=== PATIENT | female | born 1955 | race Caucasian/White ===

== ENCOUNTER 2016-09-18 12:09 | Emergency (ER) | payer BC ==
[~2016-09-18] VITALS: Ht 172.7 cm; Wt 68.2 kg
[2016-09-18 12:11] VITALS: BP 114/61; PULSE 60; RESP 20; TEMP 97.8; O2SAT 89
[2016-09-18] MEDS ORDERED: methylPREDNISolone SOD SUCC 125 MG/2 ML VIAL IVP ONE (13:00)
--- NOTE | 2016-09-18 13:03 | PD ---
HPI Chief Complaint: Cold / Flu Symptoms Time Seen by Provider: 12:58 Travel History International Travel<30 days: No Contact w/Intl Traveler<30days: No Traveled to known affect area: No History of Present Illness HPI Patient is a 61-year-old female presenting to the emergency department for evaluation of cough, chest congestion, nasal congestion. Patient states her symptoms have been ongoing for 2 weeks however for the last 2-3 days it has been exacerbated. Patient states her primary doctor prescribed Z-Juan Jose initially , she went back to him and was given a second Z-Juan Jose. Patient has also been taking Zyrtec and Mucinex. She denies any fever, chills, nausea, vomiting, chest pain, abdominal pain. Patient is a former smoker, she quit on July 30, She has a 20 year history of smoking. PFSH Past Medical History Anxiety: Yes Depression: Yes Hypertension: Yes Social History Alcohol Use: Yes (occasionally) Tobacco Use: No (quit July 2016, former smoker 20 year history.) Substance Use: No Allergies-Medications (Allergen,Severity, Reaction): Coded Allergies: Sulfa (Verified Allergy, Unknown, 09/18/16) Reported Meds & Prescriptions Reported Meds & Active Scripts Active Reported Zithromax Z-Juan Jose (Azithromycin) 250 Mg Dspk 250 Mg PO DIRECTED 500 MG (2 tabs) day 1, then 1 tab days 2-5. Alprazolam 0.25 Mg Tab 0.25 Mg PO Q6H PRN Hydrochlorothiazide 25 Mg Tab 25 Mg PO DAILY Atenolol 50 Mg Tab 50 Mg PO DAILY Lexapro (Escitalopram Oxalate) 20 Mg Tab 20 Mg PO DAILY Review of Systems Except as stated in HPI: all other systems reviewed are Neg General / Constitutional: No: Fever, Chills HENT: Positive: Rhinitis, Congestion Cardiovascular: No: Chest Pain or Discomfort Respiratory: Positive: Cough, Wheezing Gastrointestinal: No: Nausea, Vomiting, Diarrhea, Abdominal Pain Musculoskeletal: No: Myalgias Physical Exam Narrative GENERAL: Well-nourished, well-developed patient. SKIN: Warm and dry. HEAD: Normocephalic. EYES: No scleral icterus. No injection or drainage. NECK: Supple, trachea midline. No JVD or lymphadenopathy. CARDIOVASCULAR: Regular rate and rhythm without murmurs, gallops, or rubs. RESPIRATORY: Breath sounds equal bilaterally. Expiratory wheezing noted throughout lungs. No increased work of breathing, no nasal flaring, no retractions. GASTROINTESTINAL: Abdomen soft, non-tender, nondistended. MUSCULOSKELETAL: No cyanosis, or edema. BACK: Nontender without obvious deformity. No CVA tenderness. Data Data Last Documented VS Vital Signs Date Time Temp Pulse Resp B/P Pulse Ox O2 Delivery O2 Flow Rate FiO2 09/18/16 13:23 91 09/18/16 12:11 97.8 60 20 114/61 Room Air Orders Chest, Pa & Lat (09/18/16 12:57) Methylprednisolone So Succ Inj (Solumedr (09/18/16 13:00) Albuterol-Ipratropium Neb (Duoneb Neb) (09/18/16 13:00) Methylprednisolone So Succ Inj (Solumedr (09/18/16 13:45) MDM Medical Decision Making Medical Screen Exam Complete: Yes Emergency Medical Condition: Yes Interpretation(s) Vital Signs Date Time Temp Pulse Resp B/P Pulse Ox O2 Delivery O2 Flow Rate FiO2 09/18/16 12:11 97.8 60 20 114/61 89 Room Air Differential Diagnosis Pneumonia versus bronchitis versus COPD exacerbation versus viral syndrome versus other Narrative Course Patient's 51-year-old female presenting to emergency department for evaluation of chest congestion, cough, nasal congestion. Patient has completed one Z-Juan Jose and is taking another. Patient has audible wheezing noted on exam, her oxygen saturation initially was 89% on room air. Patient appears well, she is resting comfortably in room. Chest x-ray, nebulizers, Solu-Medrol ordered. She likely has a component of COPD although not formally diagnosed. Chest x-ray shows COPD , patient's oxygen saturation was initially 89% after 3 DuoNeb's her oxygen saturation was only 91%. Patient will likely desat with ambulation. Patient was moved to a medical bed in order to optimize her respiratory status. Care of patient will be transferred to provider when bed available. Milagros Limon Sep 18, 2016 13:02
[2016-09-18 13:23] VITALS: O2SAT 91
[2016-09-18] MEDS: RESP: ALBUTEROL 2.5 MG/IPRATROPIUM 0.5 MG NEB (SCH) INH ×2 (13:24→15:08)
[2016-09-18] MEDS ORDERED: HYDR25TA5 PO (13:38)
[2016-09-18] MEDS ORDERED: ZITHTAB PO (13:38)
[2016-09-18] MEDS ORDERED: LEXA20TA PO (13:38)
[2016-09-18] MEDS ORDERED: ALPR0.25 PO (13:38)
[2016-09-18] MEDS ORDERED: ATEN50TA PO (13:38)
--- NOTE | 2016-09-18 13:41 | RADRPT ---
EXAM DATE/TIME: 09/18/2016 13:25 [facility] COMPARISON: No previous studies available for comparison. INDICATIONS : Congestion with shortness of breath and wheezing x2 weeks. MEDICAL HISTORY : None. SURGICAL HISTORY : None. ENCOUNTER: Initial ACUITY: 2 weeks PAIN SCORE: 0/10 LOCATION: Bilateral chest FINDINGS: PA and lateral views of the chest demonstrate the lungs to be symmetrically aerated without evidence of mass, infiltrate or effusion. The lungs are hyperinflated bilaterally. The cardiomediastinal conto urs are unremarkable. Osseous structures are intact. CONCLUSION: Hyperinflation suggesting COPD. No acute infiltrate or effusion. Raj Goddard Jr., MD on September 18, 2016 at 13:39 Board Certified Radiologist. This report was verified electronically.
[2016-09-18] MEDS ORDERED: methylPREDNISolone SOD SUCC 125 MG/2 ML VIAL IM ONE (13:45)
[2016-09-18 14:43] VITALS: BP 127/63; PULSE 72; RESP 24; O2SAT 94
[2016-09-18] MEDS ORDERED: ZYRT10CA PO (14:50)
[2016-09-18] MEDS ORDERED: MUCI600T PO (14:50)
[2016-09-18] MEDS ORDERED: VITA250T3 PO (14:51)
[2016-09-18 15:00] VITALS: BP 135/69; PULSE 68; RESP 17; O2SAT 92
--- NOTE | 2016-09-18 15:00 | PD ---
Physical Exam Time Seen by Provider: 15:00 Narrative Patient was initially seen and evaluated by VAL Carter. See her note for initial assessment. Data Data Last Documented VS Vital Signs Date Time Temp Pulse Resp B/P Pulse Ox O2 Delivery O2 Flow Rate FiO2 09/18/16 14:43 72 24 127/63 94 Room Air 09/18/16 12:11 97.8 Orders Chest, Pa & Lat (09/18/16 12:57) Methylprednisolone So Succ Inj (Solumedr (09/18/16 13:00) Albuterol-Ipratropium Neb (Duoneb Neb) (09/18/16 13:00) Methylprednisolone So Succ Inj (Solumedr (09/18/16 13:45) Albuterol-Ipratropium Neb (Duoneb Neb) (09/18/16 15:00) MDM Medical Record Reviewed: Yes Supervised Visit with SULEIMAN: Yes Differential Diagnosis COPD, pneumonia, bronchitis Narrative Course Patient initially assessed and evaluated by VAL Kim. See her note for initial assessment. Chest x-ray shows hyperinflation of the lung suggesting COPD. Patient received Solu-Medrol and DuoNeb 3. Patient is in no acute distress and her oxygen saturation is 95-97% on cardiopulmonary monitor. She is without retractions or tachypnea. Lungs with diffuse wheezing throughout on auscultation. I discussed the patient with Dr. Becerra, my attending physician , and he agreed with my treatment plan and recommended DuoNeb 2. Breathing treatments ordered and patient to be discharged home. 1549: On reexamination patient reports improvement in symptoms. She still has diffuse wheezing throughout. Oxygen saturation is 97% on room air. No tachypnea or retractions. No acute distress. Discussed plan of care and outpatient treatment and follow-up with patient and she verbalized understanding. Patient feels comfortable going home. Deltasone and albuterol inhaler prescribed for home. Instructed patient to follow up with interior design program chair. Patient is medically cleared and stable for discharge. Discussed reasons to return to the emergency department. Instructed patient to follow up with primary care provider. Patient agrees with treatment plan. The patients vital signs are stable and the patient is stable for outpatient follow- up and treatment. Patient discharged home, stable and in no acute distress. Diagnosis Primary Impression: COPD (chronic obstructive pulmonary disease) Qualified Code: J44.9 - Chronic obstructive pulmonary disease, unspecified COPD type Referrals: Primary Care Physician Floor Cashier Patient Instructions: COPD (Chronic Obstructive Pulmonary Disease) (ED), General Instructions Additional Instruction: Use albuterol inhaler as prescribed and as needed for shortness of breath and wheezing Take oral steroids as prescribed and complete full course Avoid COPD triggers such as second hand smoke, dust, known allergens, etc Follow-up with primary care provider within 1 to 2 days Follow-up with interior design program chair Return to emergency department immediately with worsening of symptoms Med/Other Pt SpecificInfo: Prescription(s) given Scripts Prednisone (Deltasone)20 Mg Tab40 Mg PO DAILY 5 Days Ref 0 start 09/19/2016 Prov:Samia Parson 09/18/16 Albuterol 8.5 GM Inh (Proair Hfa 8.5 GM Inh)90 Mcg/Act Aer2 Puff INH Q4-6H PRN ( SOB/WHEEZING) #1 INHALER Ref 0 108 mcg/actuation Prov:Samia Parson 09/18/16 Disposition: 01 DISCHARGE HOME Condition: Stable Samia Parson Sep 18, 2016 15:00
[2016-09-18] MEDS ORDERED: ALBUAER3 INH (15:11)
[2016-09-18] MEDS ORDERED: PRED-503 PO (15:11)
[2016-09-18 16:00] VITALS: BP 127/61; PULSE 74; RESP 22; O2SAT 91
== END 2016-09-18 16:41 | disposition home or self-care (01) ==
LOC: NEPE 12:09
DX: J44.9 Chronic obstructive pulmonary disease, unspecified (principal); I10 Essential (primary) hypertension; Z87.891 Personal history of nicotine dependence
CPT/HCPCS: 71020; 94640; 94664; 96372; 96374; 99283; J2930